=== PATIENT | female | born 1980 | race Caucasian/White ===

== ENCOUNTER → 2017-07-06 16:02 | Outpatient (CLI) | payer MEDICAID, SELFPAY ==
[2017-07-06 16:05] LABS: Microscopic, Urine URINE MICROSCOPIC (MICROSCOPIC)
[2017-07-06 16:24] LABS: Basophils % 0.3 % (0.1-2.0); Eosinophils # 0.2 K/mm3 (0.0-0.4); Eosinophils % 2.8 % (0.1-12.0); Hemoglobin 13.5 g/dL (12.2-16.2); Lymphocytes # 2.4 K/mm3 (0.7-4.5); Lymphocytes % 27.3 K/mm3 (10-50); Mean Corpuscular HGB Conc 31.3 g/dL (31.8-35.4); Mean Corpuscular Hemoglobin 24.4 pg (27.0-31.2); Mean Corpuscular Volume 77.9 fl (81-99); Mean Platelet Volume 7.4 fl (7.4-10.4); Monocytes # 0.4 K/mm3 (0.1-1.0); Monocytes % 4.3 % (1.7-9.3); Neutrophils # 5.8 K/mm3 (1.8-7.8); Neutrophils % 65.4 % (37.0-80.0); Platelet Count 260 K/mm3 (142-424); Red Blood Count 5.52 M/mm3 (4.20-5.40); Red Cell Distribution Width 17.3 % (11.5-17.5); Urine Pregnancy, HCG Qual. Negative (Negative); White Blood Count 8.8 K/mm3 (4.8-10.8)
[2017-07-06 16:36] LABS: Appearance,Urine CLEAR (Clear); Bilirubin,Urine Negative (Negative); Blood, Urine 1+ (Negative); Color,Urine YELLOW (Yellow); Glucose,Urine (UA) Negative (Negative); Ketones,Urine Negative (Negative); Leukocyte Esterase,Urine Negative (Negative); Nitrate,Urine Negative (Negative); PH,Urine 5.5 (5.0-8.5); Protein,Urine Negative (Negative); Specific Gravity, Urine <= 1.005 (1.005-1.030); Urobilinogen,Urine 0.2 EU/dl (0.2)
[2017-07-06 16:37] LABS: Alanine Aminotransferase 38 U/L (12-78); Albumin Level 4.1 gm/dL (3.4-5.0); Alkaline Phosphatase 83 U/L (46-116); Anion Gap 10.7 mEq/L (5-15); Aspartate Amino Transferase 22 U/L (15-37); Bilirubin,Total 0.2 mg/dL (0.2-1.0); Blood Urea Nitrogen 6 mg/dL (7-18); Calcium 8.8 mg/dL (8.5-10.1); Carbon Dioxide 29 mmol/L (21.0-32.0); Chloride 104 mmol/L (98-107); Creatinine,Serum 0.86 mg/dL (0.55-1.02); Estimated Glomerular Filt Rate 75 ml/min (>60); GFR (African American) 91 ML/MIN (>60); Globulin 4.2 gm/dl (1.3-3.2); Glucose 88 mg/dL (74-106); Potassium 3.7 mmoL/L (3.5-5.1); Sodium 140 mmol/L (136-145); Total Protein,Serum 8.3 gm/dL (6.4-8.2)
[2017-07-06 18:19] LABS: Bacteria,Urine Trace /lpf; Squamous Epithelial Cell,Urine 20-50 #/hpf (0-5); Transitional Epi Cells,Urine OCC #/lpf (0-3); WBC,Urine Occasional #/hpf (0-3)
== END ==
PROVIDERS: PCP Obstetrics & Gynecology; Visit Provider Obstetrics & Gynecology
DX: Z01.818 Encounter for other preprocedural examination (principal); D25.9 Leiomyoma of uterus, unspecified; R10.2 Pelvic and perineal pain; N93.8 Other specified abnormal uterine and vaginal bleeding
CPT/HCPCS: 36415; 80053; 81001; 81025; 85025

== ENCOUNTER 2017-07-11 06:24 | Inpatient (IN) ==
--- NOTE | 2017-07-11 06:45 | Progress Note ---
[facility] Anesthesia Checklist - Patient Identification Patient Identification: Arm Band - Structural Data Admitted From: Home Consent for Planned Operative Procedure(s) Verified: Yes Verified Documents: Surgical Consent, History and Physical - NPO Status Verified Time NPO: 00:00 - Additional verifications Anesthesia Reactions: No - Airway Assessment C-Spine Mobility Assessed: Yes TMJ Mobility Assessed: Yes Dentition: Good Dentition - Neurological Assessment Level of Consciousness: Awake Hx Seizures: Yes Numbness or tingling in extremities: No - Anesthesia Plan Anesthesia Risk discussed: Yes Anesthesia Plan: Verified ASA Class: II Anesthesia Type: General - Preoperative Comments Pre-Operative Comments: General anesthesia with intrathecal narcotic [facility] Anesthesia HX I have reviewed the patient's past medical history: Yes Medical History: Reports:: Depression, MRSA (stomach, buttock), Seizures Denies:: Cancer, Diabetes Mellitus Type 1, Diabetes Mellitus Type 2 Other Medical History: Reports: Other Other Surgeries: Yes: Other Amputation: No Fractures: Yes (leg) *Family Hx:: Diabetes, Hypertension
--- NOTE | 2017-07-11 08:34 | Operative Note ---
Date of procedure: 07/11/17 Pre-op Diagnosis:: Dysfunctional uterine bleeding Post-op Diagnosis:: Dysfunctional uterine bleeding Procedure performed:: Total vaginal hysterectomy Surgeon:: Olman Grullon MD Non Destructive Evaluation Technician(s):: JAIME Maldonado PUMPER GAGER APPRENTICE:: Other (Cleve Calderon PUMPER GAGER APPRENTICE) Anesthesia: GETA, other (Intrathecal narcotics) Estimated blood loss (mL): 300 Operative findings:: Dysfunctional uterine bleeding, likely adenomyosis Operative note:: After the patient was prepped and draped in usual fashion general anesthesia was administered, examination under anesthesia revealed a boggy anteverted uterus, with no adnexal masses. A weighted speculum was placed within the posterior fourchette of the vagina, and the cervix was grasped with a double- tooth tenaculum and retracted to the introitus. The cervix was circumcised with a knife, and the vaginal mucosa was sharply and bluntly dissected free. A posterior colpotomy incision was made with Jesus scissors, and the long lip of the weighted speculum was placed within the posterior peritoneum. The uterosacral ligaments on either side with Kayleigh clamp, cut, and Kayleigh suture with #1 Vicryl, as were the cardinal ligaments and uterine vessels. The peritoneum was entered anteriorly with Jesus scissors, and a long right angle retractor was placed within it. The uterus was flipped anteriorly, and the ovarian pedicles on either side were Kayleigh clamped, cut, and Kayleigh suture with #1 Vicryl, and then free tied with #1 Vicryl. The tubes and ovaries were inspected and found to be normal, and remain in situ. There was no undue bleeding. The posterior vaginal cuff was run unlocked with #1 Vicryl, to include the uterosacral ligament pedicles for vaginal support, and a Drake fashion, to reduce the enterocele. The anterior peritoneum was grasped with long Allis clamp, and closed with a running pursestring suture of 0 Vicryl, and pulled tight. The vaginal cuff was closed with a running locked suture of #1 Vicryl. The urine was clear in the Smith catheter. The sponge and needle count was correct. The estimated blood loss was 300 cc. The patient tolerated the procedure well, was taken to PACU in excellent condition. She will be observed overnight. Condition: stable Disposition: PACU Specimens:: Uterus Complications:: None
--- NOTE | 2017-07-11 08:41 | Progress Note ---
[facility] Anesthesia Record Part I Intake, IV Amount: 1,300 Estimated blood loss (mL): 100 Urine output (mL): 300 Blood Pressure: 127/74 SaO2: 97 Pulse Rate: 83 Respiratory Rate: 20 Temperature: 98.7 F Patient is:: Drowsy Stable to PACU at:: 08:35
--- NOTE | 2017-07-11 08:42 | Progress Note ---
[facility] Anesthesia Record Part II Discharge Time: 09:05 Destination: Medical Surgical Department PACU nurse assessment reviewed?: Yes Patient Condition:: Good Anesthesia Complications:: None
[2017-07-11 09:48] LABS: Hematocrit 36.2 % (37.0-47.0); Hemoglobin 11.6 g/dL (12.2-16.2)
--- NOTE | 2017-07-11 14:27 | Operative Note ---
Date of procedure: 07/11/17 Pre-op Diagnosis:: Missed spontaneous Post-op Diagnosis:: Missed spontaneous Procedure performed:: Dilatation and suction curettage Surgeon:: Olman Grullon MD TROPHY ASSEMBLER:: Ky Arriaga Anesthesia: GETA Estimated blood loss (mL): 100 Operative findings:: Missed spontaneous Operative note:: After the patient was prepped and draped in usual fashion and general anesthesia was administered, examination under anesthesia revealed an 8 week size boggy uterus, with no adnexal masses. A weighted speculum was placed within the posterior fourchette of the vagina, and the anterior lip of the cervix was grasped with a single-tooth tenaculum. The uterus was sounded in an anteverted direction to 9 cm, and easily dilated to #20 Hegar dilators. A sharp curette was introduced into the endometrial cavity, with retrieval of a moderate amount of products of conception. This was followed by suction with a #7 curved suction tip, and again by sharp curettage and suction, until it was felt that the cavity was clean. The instruments were then removed. Intravenous Pitocin was begun, and the uterus was involuting well at the close of the procedure. The sponge needle count was correct. The estimated blood loss was 100 cc. The patient tolerated the procedure well, was taken to PACU in excellent condition. Her blood type is O Rh+, and therefore she is not a candidate for RhoGam. She will be discharged today, if her vital signs are stable. Condition: stable Disposition: same day Specimens:: Products of conception Complications:: None
--- NOTE | 2017-07-11 15:24 | Progress Note ---
Internal Medicine - PN: Subj *Date: 07/11/17 *Time: 15:23 (This is day of surgery. The patient is afebrile. Vital signs stable. Abdomen soft. Smith has been removed and she is voided. Surgery has been explained to the patient. I am going to advance her diet to full liquids.) Exam Vital signs and Labs for Last 24 Hours: Temp Pulse Resp BP Pulse Ox 99.0 F 71 16 106/66 97 07/11/17 14:15 07/11/17 14:15 07/11/17 14:15 07/11/17 14:15 07/11/17 14:15 Laboratory Results - last 24 hr 07/11/17 07:30: Urine Color Yellow, Urine Appearance Clear, Urine pH 5.5, Ur Specific [place] <= 1.005, Urine Protein Negative, Urine Glucose (UA) Negative, Urine Ketones Negative, Urine Blood Negative, Urine Nitrate Negative, Urine Bilirubin Negative, Urine Urobilinogen 0.2, Ur Leukocyte Esterase Negative 07/11/17 09:35: Hgb 11.6 L, Hct 36.2 L I & O for Last 24 hours: Intake & Output 07/09/17 07/10/17 07/11/17 07/12/17 11:59 11:59 11:59 11:59 Intake Total 1300 / 1300 Output Total 500 / 500 Balance 1300 / 1300 -500 / -500 Weight 160 lb 11.834 oz
--- NOTE | 2017-07-12 06:27 | Progress Note ---
Internal Medicine - PN: Subj *Date: 07/12/17 *Time: 06:26 (This is postop day #1. The patient is afebrile. Vital signs stable. Abdomen soft. She is eating and ambulating and has voided well. Hemoglobin 11.6 g, but clinically stable. She will be discharged today.) Exam Vital signs and Labs for Last 24 Hours: Temp Pulse Resp BP Pulse Ox 98.2 F 52 L 16 107/55 100 07/12/17 04:00 07/12/17 04:00 07/12/17 04:00 07/12/17 04:00 07/12/17 04:00 Laboratory Results - last 24 hr 07/11/17 07:30: Urine Color Yellow, Urine Appearance Clear, Urine pH 5.5, Ur Specific [place] <= 1.005, Urine Protein Negative, Urine Glucose (UA) Negative, Urine Ketones Negative, Urine Blood Negative, Urine Nitrate Negative, Urine Bilirubin Negative, Urine Urobilinogen 0.2, Ur Leukocyte Esterase Negative, Ur Squamous Epith Cells Occasional 07/11/17 09:35: Hgb 11.6 L, Hct 36.2 L I & O for Last 24 hours: Intake & Output 07/09/17 07/10/17 07/11/17 07/12/17 11:59 11:59 11:59 11:59 Intake Total 1300 / 1300 1050 / 1050 Output Total 500 / 500 Balance 1300 / 1300 550 / 550 Weight 160 lb 11.834 oz
--- NOTE | 2017-07-12 06:31 | Discharge Summary ---
General - General Admission date: 07/11/17 Discharge date: 07/12/17 Hospital Course Hospital Course: This 36-year-old white female was admitted for definitive treatment of dysfunctional uterine bleeding. On the date of admission, she was taken to the operating room, where she underwent a total vaginal hysterectomy, with both adnexa remaining in situ. Postoperatively, the patient is done well. She is eating and ambulating, and is passing flatus. She is voiding well with her Smith out. She is discharged home on the first postoperative day on Percocet 7.5/325 (#30), 1 p.o. every 6 hours as needed pain. She is given appropriate instructions as to diet and exercise, and she is to return the office in 2 weeks for follow-up. She is a smoker, but refuses smoking cessation patches. Objective Vital signs: Temp Pulse Resp BP Pulse Ox 98.2 F 52 L 16 107/55 100 07/12/17 04:00 07/12/17 04:00 07/12/17 04:00 07/12/17 04:00 07/12/17 04:00 Results Labs on day of discharge: Labs from last 24 hours 07/11/17 07/11/17 09:35 07:30 Hgb 11.6 L Hct 36.2 L Urine Color Yellow Urine Appearance Clear Urine pH 5.5 Ur Specific [place] <= 1.005 Urine Protein Negative Urine Glucose (UA) Negative Urine Ketones Negative Urine Blood Negative Urine Nitrate Negative Urine Bilirubin Negative Urine Urobilinogen 0.2 Ur Leukocyte Esterase Negative Ur Squamous Epith Cells Occasional Discharge Plan - Patient Discharge Instructions - Follow up Plan Home Medications: Home Medications Medication Instructions Recorded Confirmed Type aripiprazole 10 mg tablet 10 mg PO DAILY tab 06/13/17 07/11/17 History venlafaxine 37.5 mg tablet 37.5 mg PO DAILY tab 06/13/17 07/11/17 History Buprenorphine HCl/Naloxone HCl 1 each SL BID 07/07/17 07/11/17 History [Suboxone 8 mg-2 mg Sl Film] Prescriptions/Medication Reconciliation: No Action aripiprazole 10 mg tablet 10 mg PO DAILY tab venlafaxine 37.5 mg tablet 37.5 mg PO DAILY tab Buprenorphine HCl/Naloxone HCl [Suboxone 8 mg-2 mg Sl Film] 1 each SL BID
--- NOTE | 2017-07-12 07:43 | Pharmacy Consult Notes ---
[facility] Pharmacy VTE Monitoring - Patient Demographics Admission date: 07/11/17 Report Date: 07/12/17 Time: 07:42 Allergies/Adverse Reactions: Patient Allergies tramadol [TRAMADOL] Allergy (Intermediate, Verified 07/11/17 06:39) SEIZURE Pertussis Vaccines [PERTUSSIS VACCINES] Allergy (Mild, Verified 07/11/17 06:39) -- menthol [MENTHOL] Adverse Reaction (Mild, Verified 07/11/17 06:39) NA-NAUSEA Height: 1.65 m Weight: 72.91 kg - VTE Risk Labs: VTE Related Lab Results Hgb 11.6 g/dL (12.2-16.2) L 07/11/17 09:35 Hct 36.2 % (37.0-47.0) L 07/11/17 09:35 Clinical Trial Participant: No - Prophylaxis VTE Prophylaxis Ordered?: Yes Types of VTE Prophylaxis: IPCS Knee High (POST OP)
== END 2017-07-12 08:04 | disposition home or self-care (01) ==
LOC: OR 06:24 → OB 09:36
PROVIDERS: ADMIT Obstetrics & Gynecology; ATTEND Obstetrics & Gynecology

== ENCOUNTER → 2017-08-15 14:17 | Outpatient (CLI) | payer MEDICAID, SELFPAY | PROVIDERS: Visit Provider Nurse Practitioner Psychiatric/Mental Health | DX: F33.3 Major depressive disorder, recurrent, severe with psychotic symptoms (principal) ==

== ENCOUNTER → 2017-09-26 09:27 | Outpatient (POV) | payer MEDICAID, SELFPAY | PROVIDERS: Family Provider Family Medicine; PCP Family Medicine; Visit Provider Specialist | DX: G56.00 Carpal tunnel syndrome, unspecified upper limb (principal); R20.2 Paresthesia of skin | CPT/HCPCS: 95886; 95910 ==

== ENCOUNTER → 2017-10-10 10:33 | Outpatient (CLI) | payer MEDICAID, SELFPAY ==
--- NOTE | 2017-10-10 10:36 | XR_ITS ---
XR foot wt bearing RT 3V Ordering Physician: Denita Kemp DPM Patient Age: 36 years: Female HISTORY: ITS.REASON: bunions Bilateral foot pain TECHNIQUE: Right foot 3 view weightbearing Left foot 3 view weightbearing COMPARISON :. Left foot from August 2016 ========= RIGHT FOOT 3 view weightbearing Minor hallux valgus deformity with minimal soft tissue swelling overlying the medial head of first metatarsal ========= LEFT FOOT 3 view weightbearing Minor hallux valgus deformity. Mild soft tissue swelling seen overlying the medial head of first metatarsal On the left there is a 7 mm subcortical cystic area is also seen in this beneath cortex first MTP head/neck . Otherwise toes in both feet appear intact unremarkable bilaterally. Metatarsals intact unremarkable both feet . Adequate plantar arch of both feet. Calcaneus intact and unremarkable bilaterally as well IMPRESSION: Mild hallux valgus deformity bilaterally with soft tissue swelling overlying the medial head of first metatarsal bilateral
== END ==
PROVIDERS: PCP Family Medicine; Visit Provider Podiatrist
DX: M79.671 Pain in right foot (principal); M79.672 Pain in left foot
CPT/HCPCS: 73630

== ENCOUNTER → 2018-08-07 11:59 | Outpatient (CLI) | payer MEDICAID, SELFPAY ==
[2018-08-07 12:24] LABS: Basophils % 0.2 % (0.1-2.0); Eosinophils # 0.2 K/mm3 (0.0-0.4); Hematocrit 39.1 % (37.0-47.0); Hemoglobin 13.3 g/dL (12.2-16.2); Lymphocytes # 1.5 K/mm3 (0.7-4.5); Lymphocytes % 29.5 % (10-50); Mean Corpuscular HGB Conc 34.1 g/dL (31.8-35.4); Mean Corpuscular Hemoglobin 29.6 pg (27.0-31.2); Mean Corpuscular Volume 86.8 fl (81-99); Mean Platelet Volume 7.8 fl (7.4-10.4); Monocytes # 0.3 K/mm3 (0.1-1.0); Monocytes % 5.6 % (1.7-9.3); Neutrophils # 3.1 K/mm3 (1.8-7.8); Neutrophils % 61.8 % (37.0-80.0); Platelet Count 167 K/mm3 (142-424); Red Cell Distribution Width 14.1 % (11.5-17.5); White Blood Count 5.1 K/mm3 (4.8-10.8)
[2018-08-07 14:45] LABS: Alanine Aminotransferase 39 U/L (12-78); Albumin Level 3.4 gm/dL (3.4-5.0); Albumin/Globulin Ratio 1.1 (1.1-1.8); Alkaline Phosphatase 71 U/L (46-116); Anion Gap 14.8 mEq/L (5-15); Aspartate Amino Transferase 24 U/L (15-37); Bilirubin,Total 0.4 mg/dL (0.2-1.0); Blood Urea Nitrogen 13 mg/dL (7-18); Calcium 8.3 mg/dL (8.5-10.1); Carbon Dioxide 22 mmol/L (21.0-32.0); Chloride 107 mmol/L (98-107); Creatinine,Serum 0.96 mg/dL (0.55-1.02); Estimated Glomerular Filt Rate 66 ml/min (>60); GFR (African American) 80 ML/MIN (>60); Globulin 3.2 gm/dl (1.3-3.2); Glucose 77 mg/dL (74-106); Potassium 3.8 mmoL/L (3.5-5.1); Sodium 140 mmol/L (136-145); Thyroid Stimulating Hormone 2.13 uIU/ml (0.358-3.740); Total Protein,Serum 6.6 gm/dL (6.4-8.2)
[2018-08-08 09:12] LABS: Iron 81 ug/dL (27-159); UIBC 243 ug/dL (131-425)
[2018-08-09 08:14] LABS: Iron Saturation 25 % (15-55); Vitamin B12 315 pg/mL (232-1245)
== END ==
PROVIDERS: Visit Provider Nurse Practitioner Psychiatric/Mental Health
DX: R53.83 Other fatigue (principal); Z79.899 Other long term (current) drug therapy
CPT/HCPCS: 36415; 80053; 82607; 82652; 83540; 83550; 84443; 85025

== ENCOUNTER → 2018-09-18 10:12 | Outpatient (CLI) | payer MEDICAID, SELFPAY ==
--- NOTE | 2018-09-18 10:14 | US_ITS ---
US breast LT complete INDICATION: Palpable abnormality at 1:00 ORDERING PHYSICIAN: [facility] PATIENT AGE: 37 years COMPARISON: None TECHNIQUE: Left breast ultrasound complete with axilla FINDINGS: Survey is performed of the left breast around the clock and in the axilla showing no suspicious mass. No cyst are demonstrated. There are some small nodes in the axilla. IMPRESSION: Negative left breast ultrasound BI-RADS Category: 1 Negative Negative ultrasound does not exclude the possibility of malignancy. If there is indeed a palpable nodule then, it should be managed on a clinical basis. Mammography may be of further value if there is indeed a palpable nodule. (A letter has been sent to the patient regarding results of the study.)
== END ==
PROVIDERS: PCP Family Medicine; Visit Provider Nurse Practitioner Obstetrics & Gynecology
DX: N60.02 Solitary cyst of left breast (principal)
CPT/HCPCS: 76641

== ENCOUNTER → 2018-11-30 13:51 | Outpatient (CLI) | payer MEDICAID, SELFPAY ==
--- NOTE | 2018-11-30 13:53 | MM_ITS ---
PROCEDURE: MM DIG MAMM BI DX W/CAD CLINICAL INDICATION: left breast lesion, rt breast nodule COMPARISON: DMSB DIG MAMM-SCREEN KRISTI W/CAD from 12/21/2016 BR US BREAST-RT COMPLETE W/AXILLA from 01/05/2017 DMDXUWAR DIG MAMM-DX UNI RT W/AV W/CAD from 01/05/2017 BL US BREAST-LT COMPLETE W/AXILLA from 01/05/2017 BREASTLT US breast LT complete from 09/18/2018 TECHNIQUE: Standard CC and MLO images were obtained. R2 CAD reviewed spot-compression MLO and CC views obtained as well.. FINDINGS: There prominent diffuse heterogenic fibroglandular densities in both breasts. There is a possible asymmetric density central portion left breast best seen on the MLO projection. Our spot-compression views in the MLO and CC projection decrease concern as it appears to press out amongst the diffuse heterogenic fibroglandular densities. There is no suspicious nodule or architectural distortion right breast. There are no suspicious microcalcifications. IMPRESSION: Dense heterogenic parenchymal pattern somewhat lessening the sensitivity of mammography with no suspicious lesions seen on problem solving views and with negative ultrasound of the left breast as well. BI-RAD Category: 1 Negative FOLLOW-UP: 1YR 1 Year Follow-up (A letter has been sent to the patient regarding results of the study.) Dictated by: Dr. Catrachito Hernandez MD 12/07/2018 13:02 Signed by: <Electronically signed by Dr. Catrachito Hernandez MD in [place]> 12/08/2018 09:15
== END ==
PROVIDERS: PCP Family Medicine; Visit Provider Surgery
DX: N64.89 Other specified disorders of breast (principal)
CPT/HCPCS: 77066

== ENCOUNTER → 2019-07-12 10:31 | Outpatient (CLI) | payer MEDICAID, SELFPAY ==
[2019-07-13 08:59] LABS: Lithium (Eskalith(R)) 0.3 mmol/L (0.6-1.2)
== END ==
PROVIDERS: Visit Provider Nurse Practitioner Psychiatric/Mental Health
DX: F31.9 Bipolar disorder, unspecified (principal)
CPT/HCPCS: 36415; 80178

== ENCOUNTER → 2019-07-18 10:00 | Outpatient (CLI) | payer MEDICAID, SELFPAY ==
[2019-07-18 11:11] LABS: Chloride 109 mmol/L (98-107); Sodium 138 mmol/L (136-145)
[2019-07-18 11:13] LABS: Blood Urea Nitrogen 13 mg/dl (7-17)
[2019-07-18 11:14] LABS: Alanine Aminotransferase 7 U/L (12-78); Albumin Level 4.2 g/dl (3.5-5.0); Albumin/Globulin Ratio 1.6 (1.1-1.8); Alkaline Phosphatase 48 U/L (38-126); Aspartate Amino Transferase 16 U/L (14-36); Bilirubin,Total 0.8 mg/dl (0.2-1.3); Calcium 9.3 mg/dl (8.4-10.2); Carbon Dioxide 23 mmol/L (22.0-30.0); Estimated Glomerular Filt Rate 51 ml/min (>60); GFR (African American) 61 ML/MIN (>60); Globulin 2.7 g/dL (1.3-3.2); Glucose 89 mg/dl (74-100); Total Protein,Serum 6.9 g/dl (6.3-8.2)
[2019-07-19 13:11] LABS: Lithium (Eskalith(R)) 0.9 mmol/L (0.6-1.2)
== END ==
PROVIDERS: Visit Provider Nurse Practitioner Psychiatric/Mental Health
DX: Z00.00 Encounter for general adult medical examination without abnormal findings (principal); F31.9 Bipolar disorder, unspecified
CPT/HCPCS: 36415; 80053; 80178

== ENCOUNTER 2019-12-09 21:49 | Emergency (ER) | payer MEDICAID, SELFPAY ==
[2019-12-09 22:08] VITALS: BP 122/67; PULSE 50; RESP 16; TEMP 36.8; O2SAT 100; BMI 23.3
--- NOTE | 2019-12-09 22:36 | HMH.EDHA ---
ED Disposition Clinical Impression: Headache Qualifiers: Headache type: unspecified Headache chronicity pattern: acute headache Intractability: not intractable Qualified Code(s): R51 - Headache Disposition: Home, Self-Care Condition on Discharge: Good Instructions: DI for Migraine Additional Instructions: call in am Referrals: Kayode Patino [Primary Care Provider] - - Critical Care Critical Care Time: No Attestation: On 12/09/19, the high probability of a clinically significant, sudden or life threatening deterioration of the following system(s) required my full and direct attention, intervention and personal management. The time I documented below is in addition to time spent performing reported procedures but includes the following listed in this critical care notation. Medical Decision Making - Medical Records Medical records reviewed: Yes: I reviewed the patient's medical records. - Negrito Inquiry Pt receiving controlled substance: No Vital Signs: 12/09/19 22:08 12/09/19 22:52 Temperature 98.2 F 98 F Temperature Source Oral Oral Pulse Rate [Right Radial] 50 L 50 L Respiratory Rate 16 16 Blood Pressure [Right Arm] 122/67 102/53 L Blood Pressure Mean [Right Arm] 85 69 Blood Pressure Source [Right Arm] Automatic Cuff Automatic Cuff Blood Pressure Position [Right Arm] Supine Sitting 02 Sat by Pulse Oximetry 100 99 Oxygen Delivery Method Room Air Room Air - Lab Data Lab results reviewed: Yes: I reviewed the patient's lab results. Lab Results 12/09/19 22:15: WBC 8.6, RBC 4.70, Hgb 14.9, Hct 42.3, MCV 89.9, MCH 31.6 H, MCHC 35.1, RDW 14.5, Plt Count 162, MPV 8.2, Neut % (Auto) 63.3, Lymph % (Auto) 30.1, [place] % (Auto) 4.2, Eos % (Auto) 2.2, Baso % (Auto) 0.2, Neut # (Auto) 5.4, Lymph # (Auto) 2.6, [place] # (Auto) 0.4, Eos # (Auto) 0.2, Baso # (Auto) 0.0 12/09/19 22:15: Sodium 138, Potassium 3.5, Chloride 110 H, Carbon Dioxide 22, Anion Gap 9.5, BUN 9, Creatinine 1.10 H, Estimated Creat Clear 70, Estimated GFR 56 L, Est GFR ( Amer) 67, Glucose 105 H, Calcium 8.8, Total Bilirubin 0.4, AST 26, ALT 10 L, Alkaline Phosphatase 77, Total Protein 6.7, Albumin 3.9, Globulin 2.8, Albumin/Globulin Ratio 1.4 12/09/19 22:35: Urine Color Yellow, Urine Appearance Clear, Urine pH 7.0, Ur Specific [place] 1.015, Urine Protein Negative, Urine Glucose (UA) Negative, Urine Ketones Negative, Urine Blood Negative, Urine Nitrate Negative, Urine Bilirubin Negative, Urine Urobilinogen 0.2, Ur Leukocyte Esterase Negative 12/09/19 22:35: Urine Opiates Screen Negative, Urine Methadone Screen Negative, Ur Barbituates Screen Negative, Ur Phencyclidine Scrn Negative, Ur Amphetamines Screen Negative, U Benzodiazepines Scrn Negative, Urine Cocaine Screen Negative, U Marijuana (THC) Screen Negative Result diagrams: 12/09/19 22:15 12/09/19 22:15 Orders (Tests/Meds): ED MEDICATIONS Generic Name Dose Route Start Last Admin Trade Name Freq PRN Reason Stop Dose Admin Sodium Chloride 1,000 mls @ 999 mls/hr 12/09/19 22:30 12/09/19 22:30 Sod Chlor 0.9% 1000ml Bag IV 12/09/19 23:30 999 mls/hr .[id number] BONIFACIO Administration Discontinued Medications Generic Name Dose Route Start Last Admin Trade Name Freq PRN Reason Stop Dose Admin Diphenhydramine HCl 50 mg 12/09/19 22:50 12/09/19 22:54 Benadryl 50mg/1ml Vial IV 12/09/19 22:51 50 mg ONCE ONE Administration Ketorolac Tromethamine 30 mg 12/09/19 22:26 12/09/19 22:30 Toradol 30mg/Ml Vial IV 12/09/19 22:27 30 mg ONCE ONE Administration Methylprednisolone Sodium Succinate 125 mg 12/09/19 22:29 12/09/19 22:30 Solu-Medrol 125mg/2ml Vial IV 12/09/19 22:30 125 mg ONCE ONE Administration Ondansetron HCl 4 mg 12/09/19 22:26 12/09/19 22:30 Zofran 4mg/2ml Vial IV 12/09/19 22:27 4 mg ONCE ONE Administration Promethazine HCl 25 mg 12/09/19 22:51 12/09/19 22:54 Phenergan 25mg/Ml 1ml Vial IV 12/09/19 22:52 25 mg ONCE ONE Administra
[2019-12-09 22:38] LABS: Basophils % 0.2 % (0.1-2.0); Eosinophils # 0.2 K/mm3 (0.0-0.4); Eosinophils % 2.2 % (0.1-12.0); Hematocrit 42.3 % (37.0-47.0); Hemoglobin 14.9 g/dL (12.2-16.2); Lymphocytes # 2.6 K/mm3 (0.7-4.5); Lymphocytes % 30.1 % (10-50); Mean Corpuscular HGB Conc 35.1 g/dL (31.8-35.4); Mean Corpuscular Hemoglobin 31.6 pg (27.0-31.2); Mean Corpuscular Volume 89.9 fl (81-99); Mean Platelet Volume 8.2 fl (7.4-10.4); Monocytes # 0.4 K/mm3 (0.1-1.0); Monocytes % 4.2 % (1.7-9.3); Neutrophils # 5.4 K/mm3 (1.8-7.8); Neutrophils % 63.3 % (37.0-80.0); Platelet Count 162 K/mm3 (142-424); Red Cell Distribution Width 14.5 % (11.5-17.5); White Blood Count 8.6 K/mm3 (4.8-10.8)
--- NOTE | 2019-12-09 22:38 | CT_ITS ---
PROCEDURE: CT HEAD/BRAIN WO CON CLINICAL INDICATION: headache Severe headache in the right faith and behind right with visual disturbance COMPARISON: CT HEADWO CT head/brain wo con from 09/11/2017 TECHNIQUE: Axial images obtained. All CT scans at the facility use one or more dose reduction, viz: automated exposure control, ma/kV adjustment per patient size (including targeted exams where dose is matched to indication, i.e. head), or iterative reconstruction technique. FINDINGS: No midline shift, mass effect, intracranial hemorrhage, hydrocephalus, or extra-axial fluid collection is evident. The calvarium has an unremarkable appearance. No mastoid effusion. No sinus air-fluid level. IMPRESSION: No acute intracranial finding Dictated by: Flako Alvarado MD 12/10/2019 05:49 Flako Alvarado MD in [place] 12/10/2019 05:49
[2019-12-09 22:39] LABS: Chloride 110 mmol/L (98-107); Potassium 3.5 mmoL/L (3.5-5.1); Sodium 138 mmol/L (136-145)
[2019-12-09 22:42] LABS: Microscopic, Urine URINE MICROSCOPIC (MICROSCOPIC)
[2019-12-09 22:42] LABS: Alanine Aminotransferase 10 U/L (12-78); Albumin Level 3.9 g/dl (3.5-5.0); Albumin/Globulin Ratio 1.4 (1.1-1.8); Alkaline Phosphatase 77 U/L (38-126); Anion Gap 9.5 mEq/L (5-15); Aspartate Amino Transferase 26 U/L (14-36); Bilirubin,Total 0.4 mg/dl (0.2-1.3); Blood Urea Nitrogen 9 mg/dl (7-17); Carbon Dioxide 22 mmol/L (22.0-30.0); Creatinine Clearance Estimated 70 mL/min (50-200); Estimated Glomerular Filt Rate 56 ml/min (>60); GFR (African American) 67 ML/MIN (>60); Globulin 2.8 g/dL (1.3-3.2); Total Protein,Serum 6.7 g/dl (6.3-8.2)
[2019-12-09 22:43] LABS: Calcium 8.8 mg/dl (8.4-10.2); Glucose 105 mg/dl (74-100)
[2019-12-09 22:48] LABS: Appearance,Urine CLEAR (Clear); Bilirubin,Urine Negative (Negative); Blood, Urine Negative (Negative); Color,Urine YELLOW (Yellow); Glucose,Urine (UA) Negative (Negative); Ketones,Urine Negative (Negative); Leukocyte Esterase,Urine Negative (Negative); Nitrate,Urine Negative (Negative); Protein,Urine Negative (Negative); Specific Gravity, Urine 1.015 (1.005-1.030); Urobilinogen,Urine 0.2 EU/dl (0.2)
[2019-12-09 22:52] VITALS: BP 102/53; PULSE 50; RESP 16; TEMP 36.6; O2SAT 99
--- NOTE | 2019-12-09 22:54 | PC.NURSE ---
Family member at bedside. Phenergan and Benadryl ordered.
[2019-12-09 23:00] LABS: Amphetamine/Metha Screen,Urine Negative ng/ml (<1000)
[2019-12-09 23:01] LABS: Barbiturates Screen,Urine Negative ng/ml (<200); Benzodiazepines Screen,Urine Negative ng/ml (<200)
[2019-12-09 23:02] LABS: Cannabinoid Screen,Urine Negative ng/ml (<50); Cocaine Screen,Urine Negative ng/ml (<300)
[2019-12-09 23:03] LABS: Methadone Screen,Urine Negative ng/ml (<300)
[2019-12-09 23:04] LABS: Opiate Screen,Urine Negative ng/ml (<300); Phencyclidine Screen,Urine Negative ng/ml (<25)
[2019-12-09 23:42] LABS: Bacteria,Urine Trace /lpf; WBC,Urine Occasional #/hpf (0-3)
[2019-12-09 23:52] VITALS: BP 118/55; PULSE 52; RESP 12; TEMP 36.7; O2SAT 97
== END 2019-12-10 00:04 | disposition home or self-care (01) ==
PROVIDERS: Emergency Provider Emergency Medicine; PCP Family Medicine
DX: G43.909 Migraine, unspecified, not intractable, without status migrainosus (principal); F33.1 Major depressive disorder, recurrent, moderate; G40.909 Epilepsy, unspecified, not intractable, without status epilepticus; F17.210 Nicotine dependence, cigarettes, uncomplicated; Z88.6 Allergy status to analgesic agent; Z79.899 Other long term (current) drug therapy
CPT/HCPCS: 70450; 80053; 80305; 81001; 85025; 96365; 96375; 96376; 99283; J2405

== ENCOUNTER 2020-04-26 16:31 | Emergency (ER) | payer MEDICAID, SELFPAY ==
[2020-04-26 16:32] VITALS: BP 129/59; PULSE 92; RESP 18; TEMP 37; O2SAT 95; BMI 24.1
--- NOTE | 2020-04-26 16:43 | HMH.EDGENADL ---
ED Disposition Clinical Impression: Fine tremor, Medication side effect Disposition: Home, Self-Care Condition on Discharge: Fair Instructions: Generalized Anxiety Disorder, DI for Anxiety -- Adult Additional Instructions: You have been evaluated for tremors, possibly due to new medication. Please continue taking Benadryl or Vistaril as needed. Do not stop medications until advised by your primary psychiatrist. Call on Tuesday for an appointment. Return to the emergency department if you have any new or worsening symptoms. Referrals: Kayode Patino [Primary Care Provider] - Time of Disposition: 18:10 - Critical Care Critical Care Time: No Attestation: On , the high probability of a clinically significant, sudden or life threatening deterioration of the following system(s) required my full and direct attention, intervention and personal management. The time I documented below is in addition to time spent performing reported procedures but includes the following listed in this critical care notation. Medical Decision Making - Medical Records Medical records reviewed: Yes: I reviewed the patient's medical records. - Negrito Inquiry Pt receiving controlled substance: No Vital Signs: 04/26/20 16:32 Temperature 98.6 F Temperature Source Oral Pulse Rate [Left Radial] 92 H Respiratory Rate 18 Blood Pressure [Right Arm] 129/59 L Blood Pressure Mean [Right Arm] 82 Blood Pressure Source [Right Arm] Automatic Cuff Blood Pressure Position [Right Arm] Sitting 02 Sat by Pulse Oximetry 95 Oxygen Delivery Method Room Air - Lab Data Lab Results 04/26/20 17:38: WBC 7.7, RBC 5.72 H, Hgb 17.7 H, Hct 51.6 H, MCV 90.3, MCH 30.9, MCHC 34.2, RDW 13.8, Plt Count 211, MPV 8.2, Neut % (Auto) 72.8, Lymph % (Auto) 21.6, [place] % (Auto) 4.2, Eos % (Auto) 0.9, Baso % (Auto) 0.5, Neut # (Auto) 5.6, Lymph # (Auto) 1.7, [place] # (Auto) 0.3, Eos # (Auto) 0.1, Baso # (Auto) 0.0 04/26/20 17:38: Sodium 138, Potassium 4.2, Chloride 102, Carbon Dioxide 30, Anion Gap 10.2, BUN 6 L, Creatinine 0.90, Estimated Creat Clear 88, Estimated GFR 70, Est GFR ( Amer) 85, Glucose 108 H, Calcium 9.4, Total Bilirubin 0.6, AST 25, ALT 12, Alkaline Phosphatase 58, Total Creatine Kinase 37, Total Protein 8.3 H, Albumin 4.8, Globulin 3.5 H, Albumin/Globulin Ratio 1.4 04/26/20 17:42: Urine Color Yellow, Urine Appearance Clear, Urine pH 6.0, Ur Specific [place] <= 1.005, Urine Protein Negative, Urine Glucose (UA) Negative, Urine Ketones Negative, Urine Blood Negative, Urine Nitrate Negative, Urine Bilirubin Negative, Urine Urobilinogen 0.2, Ur Leukocyte Esterase Negative Result diagrams: 04/26/20 17:38 04/26/20 17:38 Orders (Tests/Meds): ED MEDICATIONS Discontinued Medications Generic Name Dose Route Start Last Admin Trade Name Freq PRN Reason Stop Dose Admin Diphenhydramine HCl 25 mg 04/26/20 17:38 04/26/20 17:52 Diphenhydramine 25mg Capsule PO 04/26/20 17:39 25 mg ONCE ONE Administration Lorazepam 1 mg 04/26/20 16:40 04/26/20 16:46 Lorazepam 1mg Tablet PO 04/26/20 16:41 1 mg ONCE ONE Administration ORDERS Category Date Time Status UA [Urinalysis and Microscopic] Stat Lab 04/26/20 17:42 Results Medical Decision Narrative: In summary this is a 39-year-old female presenting to the emergency department with tremors. She is clinically stable on arrival. Vital signs within normal limits. Most likely diagnosis is benign tremor, anxiety. Cannot exclude medication effect. Her exam is not consistent with a dystonic reaction or serotonin syndrome. Will obtain screening CBC, CMP, urinalysis. Given 1 mg oral Ativan Laboratory results are reassuring. No anemia. No renal dysfunction. No electrolyte abnormality. Assessment tremors were significantly improved only had slight resting tremor of the right hand. Given 25 mg oral Benadryl. Is much improved. Patient instructed that she may continue to take Benadryl or hydro
--- NOTE | 2020-04-26 17:04 | PC.NURSE ---
Lab called to come draw labs.
[2020-04-26 17:47] LABS: Microscopic, Urine URINE MICROSCOPIC (MICROSCOPIC)
[2020-04-26 17:49] LABS: Basophils % 0.5 % (0.1-2.0); Eosinophils # 0.1 K/mm3 (0.0-0.4); Eosinophils % 0.9 % (0.1-12.0); Hematocrit 51.6 % (37.0-47.0); Hemoglobin 17.7 g/dL (12.2-16.2); Lymphocytes # 1.7 K/mm3 (0.7-4.5); Lymphocytes % 21.6 % (10-50); Mean Corpuscular HGB Conc 34.2 g/dL (31.8-35.4); Mean Corpuscular Hemoglobin 30.9 pg (27.0-31.2); Mean Corpuscular Volume 90.3 fl (81-99); Mean Platelet Volume 8.2 fl (7.4-10.4); Monocytes # 0.3 K/mm3 (0.1-1.0); Monocytes % 4.2 % (1.7-9.3); Neutrophils # 5.6 K/mm3 (1.8-7.8); Neutrophils % 72.8 % (37.0-80.0); Platelet Count 211 K/mm3 (142-424); Red Blood Count 5.72 M/mm3 (4.20-5.40); Red Cell Distribution Width 13.8 % (11.5-17.5); White Blood Count 7.7 K/mm3 (4.8-10.8)
[2020-04-26 17:57] LABS: Chloride 102 mmol/L (98-107); Potassium 4.2 mmoL/L (3.5-5.1); Sodium 138 mmol/L (136-145)
[2020-04-26 17:59] LABS: Alanine Aminotransferase 12 U/L (12-78); Anion Gap 10.2 mEq/L (5-15); Aspartate Amino Transferase 25 U/L (14-36); Blood Urea Nitrogen 6 mg/dl (7-17); Carbon Dioxide 30 mmol/L (22.0-30.0); Creatinine Clearance Estimated 88 mL/min (50-200); Estimated Glomerular Filt Rate 70 ml/min (>60); GFR (African American) 85 ML/MIN (>60)
[2020-04-26 17:59] LABS: Appearance,Urine CLEAR (Clear); Bilirubin,Urine Negative (Negative); Blood, Urine Negative (Negative); Color,Urine YELLOW (Yellow); Glucose,Urine (UA) Negative (Negative); Ketones,Urine Negative (Negative); Leukocyte Esterase,Urine Negative (Negative); Nitrate,Urine Negative (Negative); Protein,Urine Negative (Negative); Specific Gravity, Urine <= 1.005 (1.005-1.030); Urobilinogen,Urine 0.2 EU/dl (0.2)
[2020-04-26 18:00] LABS: Albumin Level 4.8 g/dl (3.5-5.0); Albumin/Globulin Ratio 1.4 (1.1-1.8); Alkaline Phosphatase 58 U/L (38-126); Bilirubin,Total 0.6 mg/dl (0.2-1.3); Calcium 9.4 mg/dl (8.4-10.2); Creatine Kinase 37 U/L (30-135); Globulin 3.5 g/dL (1.3-3.2); Glucose 108 mg/dl (74-100); Total Protein,Serum 8.3 g/dl (6.3-8.2)
[2020-04-26 18:16] LABS: Bacteria,Urine 1+ /lpf
[2020-04-26 18:22] VITALS: BP 122/76; PULSE 76; RESP 18; TEMP 37; O2SAT 99
== END 2020-04-26 18:13 | disposition home or self-care (01) ==
PROVIDERS: Emergency Provider Emergency Medicine; PCP Family Medicine
DX: G25.1 Drug-induced tremor (principal); T43.025A Adverse effect of tetracyclic antidepressants, initial encounter; T43.595A Adverse effect of other antipsychotics and neuroleptics, initial encounter; F33.1 Major depressive disorder, recurrent, moderate; F17.210 Nicotine dependence, cigarettes, uncomplicated; Z88.6 Allergy status to analgesic agent; Z88.7 Allergy status to serum and vaccine; Z79.899 Other long term (current) drug therapy
CPT/HCPCS: 80053; 81001; 82550; 85025; 99282